=== PATIENT | female | born 1945 | race Caucasian/White ===

== ENCOUNTER 2020-03-12 10:01 | Outpatient (REF) | payer MEDICARE, SELFPAY ==
[2020-03-12 11:21] LABS: MANUAL DIFF FLAG NO
[2020-03-12 11:30] LABS: Basophils Percent Auto 0.5 % (0-2); Eosinophils Absolute Auto 0.1 X10*3/uL (0.0-0.4); Eosinophils Percent Auto 2.2 % (0-4); Hematocrit 39.4 % (37-47); Hemoglobin 12.3 g/dl (12.0-16.0); Lymphocytes Absolute Auto 1.5 X10*3/uL (1.2-4.9); Lymphocytes Percent Auto 37.4 % (20-40); Mean Corpuscular HGB Conc 31.2 g/dl (31.0-35.0); Mean Corpuscular Hemoglobin 28.9 pg (27.0-33.0); Mean Corpuscular Volume 92.5 fL (80-98); Mean Platelet Volume 10.1 fL (9.4-12.3); Monocytes Absolute Auto 0.3 X10*3/uL (0.1-1.2); Monocytes Percent Auto 7.6 % (2-11); Neutrophils Absolute Auto 2.1 X10*3/uL (2.0-8.3); Neutrophils Percent Auto 52.3 % (45-73); Platelet Count 252 X10*3/uL (160-400); Red Blood Count 4.26 X10*6/uL (4.20-5.50); Red Cell Distribution Width 13.9 % (11.0-16.0); White Blood Count 4.1 X10*3/uL (4.8-10.8)
[2020-03-12 12:04] LABS: Alanine Aminotransferase 8 U/L (0-31); Alkaline Phosphatase 74 U/L (39-117); Anion Gap 10 (12-20); Aspartate Amino Transferase 18 U/L (5-31); Bilirubin Total 0.4 mg/dL (0.0-1.0); Blood Urea Nitrogen 16 mg/dL (9-16); Calcium 8.5 mg/dL (8.4-10.2); Carbon Dioxide 26 mmol/L (22-29); Chloride 110 mmol/L (96-108); Cholesterol 169 mg/dL; Estimated Glomerular Filt Rate 57; Glucose Fasting 67 mg/dL (60-99); HDL Cholesterol 51 mg/dL; LDL Cholesterol Calculated 98 mg/dl; Potassium 3.8 mmol/l (3.3-5.1); Sodium 142 mmol/L (135-145); Total Protein 6.9 g/dL (6.5-8.0); Triglycerides 101 mg/dL
[2020-03-12 12:39] LABS: Thyroid Stimulating Hormone 0.93 uIU/mL (0.32-4.0)
== END 2020-03-12 10:02 | disposition home or self-care (01) ==
LOC: HO.HMGCLDS 10:01
PROVIDERS: PCP Internal Medicine; Visit Provider Internal Medicine
DX: E03.9 Hypothyroidism, unspecified (principal); E11.9 Type 2 diabetes mellitus without complications
CPT/HCPCS: 36415; 80053; 80061; 84443; 85025

== ENCOUNTER 2020-11-02 07:41 | Outpatient (REF) | payer MEDICARE, SELFPAY ==
[2020-11-02 11:04] LABS: MANUAL DIFF FLAG NO
[2020-11-02 11:18] LABS: Basophils Percent Auto 0.9 % (0-2); Eosinophils Absolute Auto 0.1 X10*3/uL (0.0-0.4); Eosinophils Percent Auto 1.9 % (0-4); Hematocrit 39.6 % (37-47); Hemoglobin 12.3 g/dl (12.0-16.0); Imm Gran Abs Auto 0.01 X10*3/uL (0.00-0.03); Imm Gran Pct Auto 0.2 % (0.0-0.4); Lymphocytes Absolute Auto 1.7 X10*3/uL (1.2-4.9); Mean Corpuscular HGB Conc 31.1 g/dl (31.0-35.0); Mean Corpuscular Hemoglobin 28.7 pg (27.0-33.0); Mean Corpuscular Volume 92.3 fL (80-98); Mean Platelet Volume 10.4 fL (9.4-12.3); Monocytes Absolute Auto 0.4 X10*3/uL (0.1-1.2); Monocytes Percent Auto 8.5 % (2-11); Neutrophils Absolute Auto 2.5 X10*3/uL (2.0-8.3); Neutrophils Percent Auto 52.5 % (45-73); Platelet Count 238 X10*3/uL (160-400); Red Blood Count 4.29 X10*6/uL (4.20-5.50); Red Cell Distribution Width 13.6 % (11.0-16.0); White Blood Count 4.7 X10*3/uL (4.8-10.8)
[2020-11-02 11:24] LABS: Alanine Aminotransferase 8 U/L (0-31); Albumin Level 3.9 g/dL (3.5-5.0); Alkaline Phosphatase 64 U/L (39-117); Anion Gap 11 (12-20); Aspartate Amino Transferase 18 U/L (5-31); Bilirubin Total 0.5 mg/dL (0.0-1.0); Blood Urea Nitrogen 19 mg/dL (9-16); Calcium 8.8 mg/dL (8.4-10.2); Carbon Dioxide 26 mmol/L (22-29); Chloride 108 mmol/L (96-108); Cholesterol 175 mg/dL; Estimated Glomerular Filt Rate 50; Glucose Fasting 90 mg/dL (60-99); HDL Cholesterol 56 mg/dL; LDL Cholesterol Calculated 103 mg/dl; Potassium 4.2 mmol/L (3.3-5.1); Sodium 141 mmol/L (135-145); Total Protein 7.2 g/dL (6.5-8.0); Triglycerides 81 mg/dL
[2020-11-02 11:52] LABS: Thyroid Stimulating Hormone 1.18 uIU/mL (0.32-4.0)
== END 2020-11-02 07:42 | disposition home or self-care (01) ==
LOC: HO.HMGCLDS 07:41
PROVIDERS: PCP Internal Medicine; Visit Provider Internal Medicine
DX: Z00.00 Encounter for general adult medical examination without abnormal findings (principal); E03.9 Hypothyroidism, unspecified; E11.9 Type 2 diabetes mellitus without complications
CPT/HCPCS: 36415; 80053; 80061; 84443; 85025

== ENCOUNTER 2020-11-19 10:34 | Outpatient (REF) | payer MEDICARE, SELFPAY ==
--- NOTE | ~2020-11-19 | MM_ITS ---
EXAMINATION: MM SCREENING DIGITAL BREAST TOMOSYNTHESIS, BILATERAL CLINICAL INFORMATION: Screening. Asymptomatic. The lifetime risk of breast cancer based on the Tyrer-Cuzick Model is 2%. COMPARISON: Mammography: 11/21/2019, 11/16/2018, 10/31/2017, 10/03/2016, 09/30/2015 TECHNIQUE: Digital breast tomosynthesis is performed in both the craniocaudal and mediolateral oblique views along with computer-aided detection (CAD). Synthesized 2D images are generated from the tomosynthesis. FINDINGS: The right breast is unremarkable. There is no interval mass or architectural abnormality or developing density. Neither breast shows abnormal calcifications. The bilateral axilla and skin contours are unremarkable. The left breast has increased glandular attenuation in the retroareolar region on both views measuring just under 2 cm in overall size. There is no definable mass or architectural abnormality on tomography. The finding could be related to incompletely compressed glandular tissue. Patient will be recalled for additional imaging. MM/MM tomosynthesis screening BI IMPRESSION: 1. Left: Increased parenchymal attenuation retroareolar region, possibly incompletely compressed glandular tissue. 2. Right: No mammographic evidence of malignancy. ASSESSMENT: BI-RADS 0: Incomplete - Need Additional Imaging Evaluation RECOMMENDATION: 1. Additional views of the left breast (3-D spot CC, nipple in profile; 3-D spot MLO, nipple in profile; 3-D ML nipple in profile). 2. Targeted ultrasound if warranted after review of the additional views. 3. Radiology department staff will contact the patient for additional imaging. This patient's information was entered into a reminder system with a target due date for their next mammogram.
== END 2020-11-19 10:35 | disposition home or self-care (01) ==
LOC: HO.MAMMO 10:34
PROVIDERS: PCP Internal Medicine; Visit Provider Internal Medicine
DX: Z12.31 Encounter for screening mammogram for malignant neoplasm of breast (principal)
CPT/HCPCS: 77063; 77067

== ENCOUNTER 2020-11-26 13:19 | Outpatient (REF) | payer MEDICARE, SELFPAY ==
--- NOTE | ~2020-11-26 | MM_ITS ---
EXAMINATION: MM DIAGNOSTIC DIGITAL BREAST TOMOSYNTHESIS, LEFT US DIAGNOSTIC ULTRASOUND BREAST, LEFT CLINICAL INFORMATION: Recall from screening for increased glandular attenuation retroareolar left breast possibly incompletely compressed glandular tissue. No palpable mass noted by patient or discharge. TC score 2%. COMPARISON: Mammography: 11/19/2020 and prior exams dating back to 08/01/2012 TECHNIQUE: Digital breast tomosynthesis is performed. 2D images are generated from the tomosynthesis. The following views are obtained: Spot CC, spot MLO, spot ML. Ultrasound left breast is targeted to the retroareolar region 11:00 through 4:00 position. Grayscale imaging and color Doppler are performed without and with harmonics. FINDINGS: There are scattered areas of fibroglandular density (ACR BI-RADS breast composition Category b). The additional views show splaying of the fibroglandular tissue. The parenchymal pattern is similar to prior exams. There is no interval mass or architectural abnormality. No appreciable developing density. Ultrasound demonstrates no cystic or solid mass or focal duct ectasia. No architectural abnormality. Results are discussed with the patient at time of visit. MM/MM tomosynthesis diagnostic LT IMPRESSION: Additional views show no significant changes from prior exams. Unremarkable targeted left breast ultrasound. ASSESSMENT: BI-RADS 2: Benign RECOMMENDATION: Routine annual mammography screening. This patient's information was entered into a reminder system with a target due date for their next mammogram.
== END 2020-11-26 13:20 | disposition home or self-care (01) ==
LOC: HO.MAMMO 13:19
PROVIDERS: Visit Provider Internal Medicine
DX: N64.89 Other specified disorders of breast (principal)
CPT/HCPCS: 76642; 77061; 77065

== ENCOUNTER 2021-04-13 13:13 | Outpatient (REF) | payer MEDICARE, SELFPAY ==
[2021-04-13 17:24] LABS: Thyroid Stimulating Hormone 1.24 uIU/mL (0.32-4.0)
== END 2021-04-13 13:14 | disposition home or self-care (01) ==
LOC: HO.HMGCLDS 13:13
PROVIDERS: PCP Internal Medicine; Visit Provider Internal Medicine
DX: E03.9 Hypothyroidism, unspecified (principal)
CPT/HCPCS: 36415; 84443

== ENCOUNTER 2021-11-03 07:21 | Outpatient (REF) | payer MEDICARE, SELFPAY ==
[2021-11-03 08:28] LABS: MANUAL DIFF FLAG NO
[2021-11-03 08:34] LABS: Basophils Percent Auto 0.6 % (0-2); Eosinophils Absolute Auto 0.1 X10*3/uL (0.0-0.4); Eosinophils Percent Auto 2.9 % (0-4); Hematocrit 36.3 % (37.0-47.0); Hemoglobin 11.7 g/dl (12.0-16.0); Imm Gran Abs Auto 0.01 X10*3/uL (0.00-0.03); Imm Gran Pct Auto 0.3 % (0.0-0.4); Lymphocytes Absolute Auto 1.4 X10*3/uL (1.2-4.9); Lymphocytes Percent Auto 42.1 % (20-40); Mean Corpuscular HGB Conc 32.2 g/dl (31.0-35.0); Mean Corpuscular Hemoglobin 29.3 pg (27.0-33.0); Monocytes Absolute Auto 0.3 X10*3/uL (0.1-1.2); Monocytes Percent Auto 8.2 % (2-11); Neutrophils Absolute Auto 1.6 x10*3/uL (2.0-8.3); Neutrophils Percent Auto 45.9 % (45-73); Platelet Count 231 X10*3/uL (160-400); Red Blood Count 3.99 X10*6/uL (4.20-5.50); Red Cell Distribution Width 13.2 % (11.0-16.0); White Blood Count 3.4 X10*3/uL (4.8-10.8)
[2021-11-03 11:47] LABS: Alanine Aminotransferase 12 U/L (0-31); Albumin Level 3.9 g/dL (3.5-5.0); Alkaline Phosphatase 63 U/L (39-117); Anion Gap 9 (12-20); Aspartate Amino Transferase 19 U/L (5-31); Bilirubin Total 0.3 mg/dL (0.0-1.0); Blood Urea Nitrogen 18 mg/dL (9-16); Calcium 8.6 mg/dL (8.4-10.2); Carbon Dioxide 23 mmol/L (22-29); Chloride 111 mmol/L (96-108); Cholesterol 165 mg/dL; Estimated Glomerular Filt Rate 48; Glucose Fasting 101 mg/dL (60-99); HDL Cholesterol 45 mg/dL; LDL Cholesterol Calculated 109 mg/dl; Potassium 4.4 mmol/L (3.3-5.1); Sodium 139 mmol/L (135-145); Total Protein 6.9 g/dL (6.5-8.0); Triglycerides 58 mg/dL
== END 2021-11-03 07:22 | disposition home or self-care (01) ==
LOC: HO.HMGCLDS 07:21
PROVIDERS: Visit Provider Internal Medicine
DX: I10 Essential (primary) hypertension (principal); E03.9 Hypothyroidism, unspecified; E78.5 Hyperlipidemia, unspecified; Z13.0 Encounter for screening for diseases of the blood and blood-forming organs and certain disorders involving the immune mechanism
CPT/HCPCS: 36415; 80053; 80061; 84443; 85025

== ENCOUNTER 2021-11-22 09:27 | Outpatient (REF) | payer MEDICARE, SELFPAY ==
--- NOTE | ~2021-11-22 | MM_ITS ---
EXAMINATION: MM SCREENING DIGITAL BREAST TOMOSYNTHESIS, BILATERAL CLINICAL INFORMATION: Screening. Asymptomatic. The lifetime risk of breast cancer based on the Tyrer-Cuzick Model is 2%. COMPARISON: Mammography: 11/26/2020, 11/19/2020, 11/21/2019, 11/16/2018 TECHNIQUE: Digital breast tomosynthesis is performed in both the craniocaudal and mediolateral oblique views along with computer-aided detection (CAD). Synthesized 2D images are generated from the tomosynthesis. FINDINGS: There are scattered areas of fibroglandular density (ACR BI-RADS breast composition Category b). There are no significant masses, abnormal calcifications, or other abnormalities. Parenchymal pattern is similar to prior studies. There is no developing density. The axilla and skin contours are unremarkable. No significant changes from prior exams. MM/MM tomosynthesis screening BI IMPRESSION: No mammographic evidence of malignancy. ASSESSMENT: BI-RADS 1: Negative RECOMMENDATION: Routine annual mammography screening. This patient's information was entered into a reminder system with a target due date for their next mammogram.
== END 2021-11-22 09:28 | disposition home or self-care (01) ==
LOC: HO.MAMMO 09:27
PROVIDERS: PCP Internal Medicine; Visit Provider Internal Medicine
DX: Z12.31 Encounter for screening mammogram for malignant neoplasm of breast (principal)
CPT/HCPCS: 77063; 77067

== ENCOUNTER 2022-05-09 10:25 | Outpatient (REF) | payer MEDICARE, SELFPAY ==
[2022-05-09 11:52] LABS: MANUAL DIFF FLAG NO
[2022-05-09 12:17] LABS: Basophils Percent Auto 0.8 % (0-2); Eosinophils Absolute Auto 0.1 X10*3/uL (0.0-0.4); Eosinophils Percent Auto 2.1 % (0-4); Hematocrit 38.3 % (37.0-47.0); Hemoglobin 12.4 g/dl (12.0-16.0); Imm Gran Abs Auto 0.01 X10*3/uL (0.00-0.03); Imm Gran Pct Auto 0.3 % (0.0-0.4); Lymphocytes Absolute Auto 1.5 X10*3/uL (1.2-4.9); Mean Corpuscular HGB Conc 32.4 g/dl (31.0-35.0); Mean Corpuscular Hemoglobin 29.6 pg (27.0-33.0); Mean Corpuscular Volume 91.4 fL (80.0-98.0); Mean Platelet Volume 10.2 fL (9.4-12.3); Monocytes Absolute Auto 0.3 X10*3/uL (0.1-1.2); Monocytes Percent Auto 7.7 % (2-11); Neutrophils Absolute Auto 1.8 x10*3/uL (2.0-8.3); Neutrophils Percent Auto 49.1 % (45-73); Platelet Count 235 X10*3/uL (160-400); Red Blood Count 4.19 X10*6/uL (4.20-5.50); Red Cell Distribution Width 13.6 % (11.0-16.0); White Blood Count 3.8 X10*3/uL (4.8-10.8)
[2022-05-09 12:47] LABS: Anion Gap 11 (12-20); Blood Urea Nitrogen 19 mg/dL (9-16); Carbon Dioxide 26 mmol/L (22-29); Chloride 109 mmol/L (96-108); Estimated Glomerular Filt Rate 48; Glucose Random 74 mg/dL (60-115); Sodium 142 mmol/L (135-145)
[2022-05-09 13:04] LABS: Thyroid Stimulating Hormone 1.35 uIU/mL (0.32-4.0)
== END 2022-05-09 10:26 | disposition home or self-care (01) ==
LOC: HO.HMGCLDS 10:25
PROVIDERS: Visit Provider Internal Medicine
DX: E03.9 Hypothyroidism, unspecified (principal); D64.9 Anemia, unspecified
CPT/HCPCS: 36415; 80048; 84443; 85025

== ENCOUNTER 2023-01-05 09:25 | Outpatient (AMB) | payer MEDICARE, SELFPAY ==
[2023-01-05 09:27] VITALS: BP 110/68; PULSE 55; O2SAT 98; BMI 23.6
--- NOTE | 2023-01-05 09:27 | MHC.PC.OV ---
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 Accompanied by: Spouse Allergies acetaminophen [From Vicodin] Allergy (Unknown, Verified 01/05/23 09:28) rash hydrocodone [From Vicodin] Allergy (Unknown, Verified 01/05/23 09:28) rash levofloxacin [Levaquin] Allergy (Unknown, Verified 01/05/23 09:28) Rash penicillin V Allergy (Unknown, Verified 01/05/23 09:28) Rash Sulfa (Sulfonamide Antibiotics) Allergy (Unknown, Verified 01/05/23 09:28) Rash Medication List - Last Reconciled 01/05/23 by Viraj Barrera MD fluorometholone 0.1% drps ophthalmic (eye) levothyroxine 50 mcg PO DAILY memantine 10 mg PO BID timolol maleate 0.25% 0 drps ophthalmic (eye) Tobacco use date assessed: 05/06/22 Fall risk assessment: No Falls in past year Last assessed Fall Risk: 01/05/23 Dental Screening Dental Screen Date: 01/05/23 Did you have a dental visit in the last 12 months?: Yes Did you have a dental problem in the last 6 months where you did not have access to dental care?: No Was dental information given to patient?: Patient has dentist HPI 4mth f/u HPI Details hypothyroidism on rx; doing well PFSH Surgical History History of carpal tunnel release History of removal of cyst History of tonsillectomy and adenoidectomy H/O rectal polypectomy Family History Father Stroke Mother Alzheimers disease Social History Housing: House Alcohol intake: current Alcohol intake frequency: holidays/special occasions only Patient Tobacco Use Status: Former Tobacco user Tobacco use type: Cigarette e-Cigarette/Vaping Use: Never Used Second Hand Smoke Exposure: No service: No Current occupational status: retired Cognitive needs: No Hearing needs: Yes Vision needs: Yes Questionnaire PHQ-9 Over the last 2 weeks, how often have you been bothered by any of the following problems? 1. Little interest or pleasure in doing things: not at all 2. Feeling down, depressed, or hopeless: not at all 3. Trouble falling or staying asleep, or sleeping too much: not at all 4. Feeling tired or having little energy: not at all 5. Poor appetite or overeating: not at all 6. Feeling bad about yourself - or that you are a failure or have let yourself or your family down: not at all 7. Trouble concentrating on things, such as reading the newspaper or watching television: not at all 8. Moving or speaking so slowly that other people could have noticed. Or the opposite - being so fidgety or restless that you have been moving around a lot more than usual: not at all 9. Thoughts that you would be better off or of hurting yourself in some way: not at all Total score: 0 Depression Screening Interpretation: Negative 73104 - PHQ-9 Billing: Yes Source: Developed by Drs. Alpesh Paiz, Janie Santos, Armaan Alexander and colleagues, with an educational jaime from [employer]. Thrive Questionnaire Date Thrive assessed: 05/06/22 AUDIT C Alcohol Use Questionnaire (AUDIT-C) 1. How often do you have a drink containing alcohol?: Never Total Score: 0 Score Reviewed/Action Taken: Yes PATTY-7 AMB Questionnaire PATTY-7 Date PATTY - 7 assessed: 05/06/22 Source: Developed by Drs. Alpesh Paiz, Janie Santos, Armaan Alexander and colleagues, with an educational jaime from [employer]. Review of Systems Const Denies chills, Denies headache(s) and Denies weight loss ENT Denies headache(s) Card Denies chest pain, Denies syncope, Denies irregular heart rhythm and Denies dyspnea Resp Denies chest congestion, Denies cough and Denies dyspnea GI Denies abdominal pain, Denies change in stool character, Denies nausea and Denies vomiting Musc Denies deformity and Denies joint swelling Neuro Denies syncope and Denies headache(s) Physical exam (Primary Care) Vital Signs: Last Vital Signs Pulse 55 01/05/23 09:27 BP 110/68 01/05/23 09:27 Pulse Ox 98 01/05/23 09:27 Oxygen Delivery Method Room Air 01/05/23 09:27 BMI result Body Mass Index 23.6 Tobacco/Smoking Status: Tobacco use Status Tobacco use date assessed 05/06/22 01/05/23 09:31 Patient Tobacco Use Status Former Tobacco user 01/05/23 09:31 Tobacco use type Cigarette 01/05/23 09:31 e-Cigarette/Vaping Use Never Used 01/05/23 09:31 PHQ-9: PHQ-9 Score PHQ-9: Total score 0 01/05/23 09:41 Depression Screening Interpretation: Negative Thrive Assessment: Date of Thrive Assessment Date Thrive assessed 05/06/22 01/05/23 09:31 Const General: cooperative, comfortable, no acute distress and alert Neck Neck: Yes no lymphadenopathy Thyroid: Thyroid normal Resp Effort & Inspection: normal respiratory effort Auscultation: clear to auscultation bilaterally Percussion: percussion normal Cardio Jugular venous distension: no JVD Palpation: normal PMI Rate: regular rate Rhythm: regular rhythm Heart sounds: S1 normal heart sound present and S2 normal heart sound present GI Inspection: Yes normal to inspection Palpation (GI): No hepatosplenomegaly present Skin General skin exam: no rashes or lesions noted Extrem General: Yes no clubbing, cyanosis or edema Assessment and Plan Assessment & Plan (1) Hypothyroidism: Code(s): E03.9 - Hypothyroidism, unspecified Plan: stable; same rx Orders: Orders Lipid Panel Today E78.5 - Hyperlipidemia, unspecified Complete Blood Count Auto Diff Today D64.9 - Anemia, unspecified Thyroid Stimulating Hormone Today E03.9 - Hypothyroidism, unspecified Comprehensive [place]. Panel Fast Today N28.9 - Disorder of kidney and ureter, unspecified Coding Level of Care Code Est Pt Level 3 (32131) Diagnoses Hypothyroidism E03.9
== END 2023-01-05 09:42 | disposition home or self-care (01) ==
PROVIDERS: Visit Provider Internal Medicine
DX: E03.9 Hypothyroidism, unspecified (principal)
CPT/HCPCS: 99213

== ENCOUNTER 2023-01-09 08:48 | Outpatient (REF) | payer MEDICARE, SELFPAY ==
[2023-01-09 11:33] LABS: MANUAL DIFF FLAG NO
[2023-01-09 11:49] LABS: Basophils Percent Auto 0.6 % (0-2); Eosinophils Absolute Auto 0.1 X10*3/uL (0.0-0.4); Eosinophils Percent Auto 1.8 % (0-4); Hematocrit 39.3 % (37.0-47.0); Hemoglobin 12.6 g/dl (12.0-16.0); Imm Gran Abs Auto 0.02 X10*3/uL (0.00-0.03); Imm Gran Pct Auto 0.4 % (0.0-0.4); Lymphocytes Absolute Auto 1.3 X10*3/uL (1.2-4.9); Mean Corpuscular HGB Conc 32.1 g/dl (31.0-35.0); Mean Corpuscular Hemoglobin 29.4 pg (27.0-33.0); Mean Corpuscular Volume 91.8 fL (80.0-98.0); Mean Platelet Volume 10.7 fL (9.4-12.3); Monocytes Absolute Auto 0.3 X10*3/uL (0.1-1.2); Monocytes Percent Auto 5.5 % (2-11); Neutrophils Absolute Auto 3.2 x10*3/uL (2.0-8.3); Neutrophils Percent Auto 65.7 % (45-73); Platelet Count 264 X10*3/uL (160-400); Red Blood Count 4.28 X10*6/uL (4.20-5.50); Red Cell Distribution Width 13.9 % (11.0-16.0); White Blood Count 4.9 X10*3/uL (4.8-10.8)
[2023-01-09 12:41] LABS: Alanine Aminotransferase 7 U/L (0-31); Albumin Level 3.8 g/dL (3.5-5.0); Alkaline Phosphatase 54 U/L (39-117); Anion Gap 12 (12-20); Aspartate Amino Transferase 20 U/L (5-31); Bilirubin Total 0.4 mg/dL (0.0-1.0); Blood Urea Nitrogen 17 mg/dL (9-16); Calcium 9.3 mg/dL (8.4-10.2); Carbon Dioxide 23 mmol/L (22-29); Chloride 111 mmol/L (96-108); Cholesterol 191 mg/dL (<200); Estimated Glomerular Filt Rate 41; Glucose Fasting 105 mg/dL (60-99); HDL Cholesterol 47 mg/dL (>40); LDL Cholesterol Calculated 126 mg/dL (<100); Potassium 3.9 mmol/L (3.3-5.1); Sodium 142 mmol/L (135-145); Total Protein 7.1 g/dL (6.5-8.0); Triglycerides 92 mg/dL (<150)
[2023-01-09 12:42] LABS: Thyroid Stimulating Hormone 14.87 uIU/mL (0.32-4.0)
== END 2023-01-09 08:49 | disposition home or self-care (01) ==
LOC: HO.HMGCLDS 08:48
PROVIDERS: PCP Internal Medicine; Visit Provider Internal Medicine
DX: D64.9 Anemia, unspecified (principal); N28.9 Disorder of kidney and ureter, unspecified; E03.9 Hypothyroidism, unspecified; E78.5 Hyperlipidemia, unspecified
CPT/HCPCS: 36415; 80053; 80061; 84443; 85025

== ENCOUNTER 2023-02-14 10:21 | Outpatient (AMB) | payer MEDICARE, SELFPAY ==
[2023-02-14 10:23] VITALS: BP 132/90; PULSE 67; O2SAT 98; BMI 21.9
--- NOTE | 2023-02-14 10:23 | MHC.PC.OV ---
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 Allergies acetaminophen [From Vicodin] Allergy (Unknown, Verified 02/14/23 10:24) rash hydrocodone [From Vicodin] Allergy (Unknown, Verified 02/14/23 10:24) rash levofloxacin [Levaquin] Allergy (Unknown, Verified 02/14/23 10:24) Rash penicillin V Allergy (Unknown, Verified 02/14/23 10:24) Rash Sulfa (Sulfonamide Antibiotics) Allergy (Unknown, Verified 02/14/23 10:24) Rash Medication List - Last Reconciled 02/14/23 by Viraj Barrera MD fluorometholone 0.1% drps ophthalmic (eye) levothyroxine (Synthroid) 100 mcg PO DAILY 90 days memantine 10 mg PO BID timolol maleate 0.25% 0 drps ophthalmic (eye) Tobacco use date assessed: 05/06/22 Fall risk assessment: No Falls in past year Last assessed Fall Risk: 02/14/23 Dental Screening Dental Screen Date: 02/14/23 Did you have a dental visit in the last 12 months?: Yes Did you have a dental problem in the last 6 months where you did not have access to dental care?: No Was dental information given to patient?: Patient has dentist HPI not eating or drinking much HPI Details has bilat hip and lower back pain PFSH Surgical History History of carpal tunnel release History of removal of cyst History of tonsillectomy and adenoidectomy H/O rectal polypectomy Family History Father Stroke Mother Alzheimers disease Social History Housing: House Alcohol intake: current Alcohol intake frequency: holidays/special occasions only Patient Tobacco Use Status: Former Tobacco user Tobacco use type: Cigarette e-Cigarette/Vaping Use: Never Used Second Hand Smoke Exposure: No service: No Current occupational status: retired Cognitive needs: No Hearing needs: Yes Vision needs: Yes Questionnaire PHQ-9 Over the last 2 weeks, how often have you been bothered by any of the following problems? 1. Little interest or pleasure in doing things: not at all 2. Feeling down, depressed, or hopeless: not at all 3. Trouble falling or staying asleep, or sleeping too much: not at all 4. Feeling tired or having little energy: not at all 5. Poor appetite or overeating: not at all 6. Feeling bad about yourself - or that you are a failure or have let yourself or your family down: not at all 7. Trouble concentrating on things, such as reading the newspaper or watching television: not at all 8. Moving or speaking so slowly that other people could have noticed. Or the opposite - being so fidgety or restless that you have been moving around a lot more than usual: not at all 9. Thoughts that you would be better off or of hurting yourself in some way: not at all Total score: 0 Depression Screening Interpretation: Negative Depression Screening Done: Yes 84411 - PHQ-9 Billing: Yes Source: Developed by Drs. Alpesh Paiz, Janie Santos, Armaan Alexander and colleagues, with an educational jaime from [employer]. Thrive Questionnaire Date Thrive assessed: 05/06/22 AUDIT C Alcohol Use Questionnaire (AUDIT-C) 1. How often do you have a drink containing alcohol?: Never Total Score: 0 Score Reviewed/Action Taken: Yes PATTY-7 AMB Questionnaire PATTY-7 Date PATTY - 7 assessed: 05/06/22 Source: Developed by Drs. Alpesh Paiz, Armaan Rodriguez and colleagues, with an educational jaime from [employer]. Review of Systems Const Denies chills, Denies headache(s) and Denies weight loss ENT Denies headache(s) Card Denies chest pain, Denies syncope, Denies irregular heart rhythm and Denies dyspnea Resp Denies chest congestion, Denies cough and Denies dyspnea GI Denies abdominal pain, Denies change in stool character, Denies nausea and Denies vomiting Musc Denies deformity and Denies joint swelling Neuro Denies syncope and Denies headache(s) Physical exam (Primary Care) Vital Signs: Last Vital Signs Pulse 67 02/14/23 10:23 BP 132/90 H 02/14/23 10:23 Pulse Ox 98 02/14/23 10:23 Oxygen Delivery Method Room Air 02/14/23 10:23 BMI result Body Mass Index 21.9 Tobacco/Smoking Status: Tobacco use Status Tobacco use date assessed 05/06/22 02/14/23 10:29 Patient Tobacco Use Status Former Tobacco user 02/14/23 10:29 Tobacco use type Cigarette 02/14/23 10:29 e-Cigarette/Vaping Use Never Used 02/14/23 10:29 PHQ-9: PHQ-9 Score PHQ-9: Total score 0 02/14/23 10:37 Depression Screening Interpretation: Negative Thrive Assessment: Date of Thrive Assessment Date Thrive assessed 05/06/22 02/14/23 10:29 Const General: cooperative, comfortable, no acute distress and alert Neck Neck: Yes no lymphadenopathy Thyroid: Thyroid normal Resp Effort & Inspection: normal respiratory effort Auscultation: clear to auscultation bilaterally Percussion: percussion normal Cardio Jugular venous distension: no JVD Palpation: normal PMI Rate: regular rate Rhythm: regular rhythm Heart sounds: S1 normal heart sound present and S2 normal heart sound present GI Inspection: Yes normal to inspection Palpation (GI): No hepatosplenomegaly present Skin General skin exam: no rashes or lesions noted Extrem General: Yes no clubbing, cyanosis or edema Assessment and Plan Assessment & Plan (1) Low back pain: Code(s): M54.50 - Low back pain, unspecified Plan: xr labs and rx; hols zoloft Orders: Orders Thyroid Stimulating Hormone Today E03.9 - Hypothyroidism, unspecified Basic Metabolic Panel Today E03.9 - Hypothyroidism, unspecified XR lumbar spine 2-3V Today M54.9 - Dorsalgia, unspecified XR hip RT min 2V Today M25.559 - Pain in unspecified hip XR hip LT min 2V Today M25.559 - Pain in unspecified hip Medications: New meloxicam 15 mg PO DAILY 30 tabs 3RF Coding Level of Care Code Est Pt Level 3 (10377) Diagnoses Low back pain M54.50
== END 2023-02-14 11:35 | disposition home or self-care (01) ==
PROVIDERS: PCP Internal Medicine; Visit Provider Internal Medicine
DX: M54.50 Low back pain, unspecified (principal)
CPT/HCPCS: 99213

== ENCOUNTER 2023-02-15 10:30 | Outpatient (REF) | payer MEDICARE, SELFPAY ==
--- NOTE | ~2023-02-15 | XR_ITS ---
EXAMINATION: XR LUMBAR SPINE XR RIGHT HIP XR LEFT HIP INDICATION: Back pain, pain in unspecified hip. TECHNIQUE: AP and 2 lateral views of the lumbar spine. AP and frog-lateral views of bilateral hips. FINDINGS: LUMBAR SPINE: The bones are diffusely demineralized. Levoscoliosis of the lumbar spine. Atherosclerotic aortic calcifications. Degenerative changes on limited images of the lower thoracic spine. Advanced multilevel degenerative changes with multilevel loss of disc space height most notable at L3-L4. RIGHT HIP: The bones are diffusely demineralized. Mild degenerative changes with joint space and hypertrophic change right hip. Extensive vascular calcifications. LEFT HIP: The bones are diffusely demineralized. Mild degenerative changes with joint space and hypertrophic change right hip. Extensive vascular calcifications. Coarse scattered calcifications in the soft tissues of the pelvis and hips. XR/XR hip LT min 2V IMPRESSION: 1. Advanced multilevel degenerative changes in the lumbar spine most notable at L3-L4. 2. Mild degenerative changes in the bilateral hips. 3. Facet arthritis. Additional imaging with MRI should be considered in the appropriate clinical setting if there is concern for fracture or other underlying pathology.
--- NOTE | ~2023-02-15 | XR_ITS ---
EXAMINATION: XR LUMBAR SPINE XR RIGHT HIP XR LEFT HIP INDICATION: Back pain, pain in unspecified hip. TECHNIQUE: AP and 2 lateral views of the lumbar spine. AP and frog-lateral views of bilateral hips. FINDINGS: LUMBAR SPINE: The bones are diffusely demineralized. Levoscoliosis of the lumbar spine. Atherosclerotic aortic calcifications. Degenerative changes on limited images of the lower thoracic spine. Advanced multilevel degenerative changes with multilevel loss of disc space height most notable at L3-L4. RIGHT HIP: The bones are diffusely demineralized. Mild degenerative changes with joint space and hypertrophic change right hip. Extensive vascular calcifications. LEFT HIP: The bones are diffusely demineralized. Mild degenerative changes with joint space and hypertrophic change right hip. Extensive vascular calcifications. Coarse scattered calcifications in the soft tissues of the pelvis and hips. XR/XR lumbar spine 2-3V IMPRESSION: 1. Advanced multilevel degenerative changes in the lumbar spine most notable at L3-L4. 2. Mild degenerative changes in the bilateral hips. 3. Facet arthritis. Additional imaging with MRI should be considered in the appropriate clinical setting if there is concern for fracture or other underlying pathology.
--- NOTE | ~2023-02-15 | XR_ITS ---
EXAMINATION: XR LUMBAR SPINE XR RIGHT HIP XR LEFT HIP INDICATION: Back pain, pain in unspecified hip. TECHNIQUE: AP and 2 lateral views of the lumbar spine. AP and frog-lateral views of bilateral hips. FINDINGS: LUMBAR SPINE: The bones are diffusely demineralized. Levoscoliosis of the lumbar spine. Atherosclerotic aortic calcifications. Degenerative changes on limited images of the lower thoracic spine. Advanced multilevel degenerative changes with multilevel loss of disc space height most notable at L3-L4. RIGHT HIP: The bones are diffusely demineralized. Mild degenerative changes with joint space and hypertrophic change right hip. Extensive vascular calcifications. LEFT HIP: The bones are diffusely demineralized. Mild degenerative changes with joint space and hypertrophic change right hip. Extensive vascular calcifications. Coarse scattered calcifications in the soft tissues of the pelvis and hips. XR/XR hip RT min 2V IMPRESSION: 1. Advanced multilevel degenerative changes in the lumbar spine most notable at L3-L4. 2. Mild degenerative changes in the bilateral hips. 3. Facet arthritis. Additional imaging with MRI should be considered in the appropriate clinical setting if there is concern for fracture or other underlying pathology.
[2023-02-15 12:16] LABS: Anion Gap 12 (12-20); Blood Urea Nitrogen 19 mg/dL (9-16); Calcium 9.1 mg/dL (8.4-10.2); Carbon Dioxide 22 mmol/L (22-29); Chloride 111 mmol/L (96-108); Estimated Glomerular Filt Rate 52; Glucose Random 102 mg/dL (60-115); Potassium 3.6 mmol/L (3.3-5.1); Sodium 141 mmol/L (135-145)
== END 2023-02-15 10:31 | disposition home or self-care (01) ==
LOC: HO.LAB 10:30
PROVIDERS: PCP Internal Medicine; Visit Provider Internal Medicine
DX: E03.9 Hypothyroidism, unspecified (principal); M54.9 Dorsalgia, unspecified; M25.551 Pain in right hip
CPT/HCPCS: 36415; 72100; 73502; 80048; 84443

== ENCOUNTER 2023-03-08 10:39 | Outpatient (AMB) | payer MEDICARE, SELFPAY ==
[2023-03-08 10:41] VITALS: BP 140/80; PULSE 60; O2SAT 98; BMI 21.8
--- NOTE | 2023-03-08 10:41 | A.OFFPC_ITS ---
Vital Signs 03/08/23 10:41 Height 5 ft 1 in Weight 115 lb 4 oz BMI 21.8 BP 140/80 H Blood Pressure Location Lt brachial Position Sitting Pulse 60 Pulse Source Pulse Oximeter Pulse Oximetry (%) 98 Oxygen Delivery Method Room Air Intake Visit Reasons: Weight loss/ unsteady gait Applied Exercise Physiologist Required: No Process Chemist: Present Accompanied by: Daughter Allergies acetaminophen [From Vicodin] Allergy (Unknown, Verified 03/08/23 10:42) rash hydrocodone [From Vicodin] Allergy (Unknown, Verified 03/08/23 10:42) rash levofloxacin [Levaquin] Allergy (Unknown, Verified 03/08/23 10:42) Rash penicillin V Allergy (Unknown, Verified 03/08/23 10:42) Rash Sulfa (Sulfonamide Antibiotics) Allergy (Unknown, Verified 03/08/23 10:42) Rash Medication List - Last Reconciled 03/09/23 by Viraj Barrera MD doxycycline hyclate 100 mg PO BID fluorometholone 0.1% drps ophthalmic (eye) levothyroxine (Synthroid) 100 mcg PO DAILY 90 days meloxicam 15 mg PO DAILY memantine 10 mg PO BID timolol maleate 0.25% 0 drps ophthalmic (eye) Tobacco use date assessed: 05/06/22 Fall risk assessment: No Falls in past year Last assessed Fall Risk: 03/08/23 Dental Screening Dental Screen Date: 03/08/23 Did you have a dental visit in the last 12 months?: Yes Did you have a dental problem in the last 6 months where you did not have access to dental care?: No Was dental information given to patient?: Patient has dentist HPI Weight loss/ unsteady gait HPI Details progressive weight loss due to poor intake from [facility]; family coping but needs assistance [facility] Surgical History History of carpal tunnel release History of removal of cyst History of tonsillectomy and adenoidectomy H/O rectal polypectomy Family History Father Stroke Mother Alzheimers disease Social History Housing: House Alcohol intake: current Alcohol intake frequency: holidays/special occasions only Patient Tobacco Use Status: Former Tobacco user Tobacco use type: Cigarette e-Cigarette/Vaping Use: Never Used Second Hand Smoke Exposure: No service: No Current occupational status: retired Cognitive needs: No Hearing needs: Yes Vision needs: Yes Questionnaire Thrive Questionnaire Date Thrive assessed: 05/06/22 PATTY-7 AMB Questionnaire PATTY-7 Date PATTY - 7 assessed: 05/06/22 Source: Developed by Drs. Alpesh Paiz, Janie Santos, Armaan Alexander and colleagues, with an educational jaime from [employer]. Review of Systems Const Denies chills, Denies headache(s) and Denies weight loss ENT Denies headache(s) Card Denies chest pain, Denies syncope, Denies irregular heart rhythm and Denies dyspnea Resp Denies chest congestion, Denies cough and Denies dyspnea GI Denies abdominal pain, Denies change in stool character, Denies nausea and Denies vomiting Musc Denies deformity and Denies joint swelling Neuro Denies syncope and Denies headache(s) Physical exam (Primary Care) Vital Signs: Last Vital Signs Pulse 60 03/08/23 10:41 BP 140/80 H 03/08/23 10:41 Pulse Ox 98 03/08/23 10:41 Oxygen Delivery Method Room Air 03/08/23 10:41 BMI result Body Mass Index 21.8 Tobacco/Smoking Status: Tobacco use Status Tobacco use date assessed 05/06/22 03/08/23 10:43 Patient Tobacco Use Status Former Tobacco user 03/08/23 10:43 Tobacco use type Cigarette 03/08/23 10:43 e-Cigarette/Vaping Use Never Used 03/08/23 10:43 Thrive Assessment: Date of Thrive Assessment Date Thrive assessed 05/06/22 03/08/23 10:43 Const General: cooperative, comfortable, no acute distress and alert Neck Neck: Yes no lymphadenopathy Thyroid: Thyroid normal Resp Effort & Inspection: normal respiratory effort Auscultation: clear to auscultation bilaterally Percussion: percussion normal Cardio Jugular venous distension: no JVD Palpation: normal PMI Rate: regular rate Rhythm: regular rhythm Heart sounds: S1 normal heart sound present and S2 normal heart sound present GI Inspection: Yes normal to inspection Palpation (GI): No hepatosplenomegaly present Skin General skin exam: no rashes or lesions noted Extrem General: Yes no clubbing, cyanosis or edema Assessment and Plan Assessment & Plan (1) Alzheimer disease: Code(s): G30.9 - Alzheimer's disease, unspecified; F02.80 - Dementia in other diseases classified elsewhere, unspecified severity, without behavioral disturbance, psychotic disturbance, mood disturbance, and anxiety Plan: nutritional advice; labs Orders: Orders Urine Culture 03/08/23 N39.0 - Urinary tract infection, site not specified Basic Metabolic Panel 03/08/23 N39.0 - Urinary tract infection, site not specified Thyroid Stimulating Hormone 03/08/23 E03.9 - Hypothyroidism, unspecified Basic Metabolic Panel Today F02.80 - Dementia in other diseases classified elsewhere, unspecified severity, without behavioral disturbance, psychotic disturbance, mood disturbance, and anxiety, G30.9 - Alzheimer's disease, unspecified Coding Level of Care Code Est Pt Level 3 (93871) Diagnoses Alzheimer disease G30.9; F02.80
== END 2023-03-08 11:26 | disposition home or self-care (01) ==
PROVIDERS: PCP Internal Medicine; Visit Provider Internal Medicine
DX: G30.9 Alzheimer's disease, unspecified (principal); F02.80 Dementia in other diseases classified elsewhere, unspecified severity, without behavioral disturbance, psychotic disturbance, mood disturbance, and anxiety
CPT/HCPCS: 99213

== ENCOUNTER 2023-03-08 11:37 | Outpatient (REF) | payer MEDICARE, SELFPAY ==
[2023-03-08 11:52] LABS: MANUAL DIFF FLAG NO
[2023-03-08 12:46] LABS: Basophils Percent Auto 0.7 % (0-2); Eosinophils Absolute Auto 0.2 X10*3/uL (0.0-0.4); Eosinophils Percent Auto 3.4 % (0-4); Hematocrit 36.3 % (37.0-47.0); Hemoglobin 11.5 g/dl (12.0-16.0); Imm Gran Abs Auto 0.03 X10*3/uL (0.00-0.03); Imm Gran Pct Auto 0.5 % (0.0-0.4); Lymphocytes Absolute Auto 1.8 X10*3/uL (1.2-4.9); Lymphocytes Percent Auto 30.6 % (20-40); Mean Corpuscular HGB Conc 31.7 g/dl (31.0-35.0); Mean Corpuscular Hemoglobin 28.1 pg (27.0-33.0); Mean Corpuscular Volume 88.8 fL (80.0-98.0); Mean Platelet Volume 10.3 fL (9.4-12.3); Monocytes Absolute Auto 0.4 X10*3/uL (0.1-1.2); Monocytes Percent Auto 7.4 % (2-11); Neutrophils Absolute Auto 3.4 x10*3/uL (2.0-8.3); Neutrophils Percent Auto 57.4 % (45-73); Platelet Count 241 X10*3/uL (160-400); Red Blood Count 4.09 X10*6/uL (4.20-5.50); Red Cell Distribution Width 14.7 % (11.0-16.0)
[2023-03-08 13:24] LABS: Alanine Aminotransferase 12 U/L (0-31); Albumin Level 3.4 g/dL (3.5-5.0); Alkaline Phosphatase 50 U/L (39-117); Anion Gap 10 (12-20); Aspartate Amino Transferase 24 U/L (5-31); Bilirubin Total 0.6 mg/dL (0.0-1.0); Blood Urea Nitrogen 16 mg/dL (9-16); Calcium 8.9 mg/dL (8.4-10.2); Carbon Dioxide 22 mmol/L (22-29); Chloride 110 mmol/L (96-108); Cholesterol 198 mg/dL (<200); Estimated Glomerular Filt Rate 54; Glucose Fasting 92 mg/dL (60-99); Glucose Random 92 mg/dL (60-115); HDL Cholesterol 36 mg/dL (>40); LDL Cholesterol Calculated 143 mg/dL (<100); Potassium 3.5 mmol/L (3.3-5.1); Sodium 138 mmol/L (135-145); Total Protein 6.5 g/dL (6.5-8.0); Triglycerides 98 mg/dL (<150)
[2023-03-08 13:40] LABS: Thyroid Stimulating Hormone 0.66 uIU/mL (0.32-4.0)
== END 2023-03-08 11:38 | disposition home or self-care (01) ==
LOC: HO.LAB 11:37
PROVIDERS: PCP Internal Medicine; Visit Provider Internal Medicine
DX: N28.9 Disorder of kidney and ureter, unspecified (principal); D64.9 Anemia, unspecified; N39.0 Urinary tract infection, site not specified; E78.5 Hyperlipidemia, unspecified; E03.9 Hypothyroidism, unspecified
CPT/HCPCS: 36415; 80048; 80053; 80061; 84443; 85025; 87086

== ENCOUNTER 2023-04-14 09:17 | Outpatient (AMB) | payer MEDICARE, SELFPAY ==
--- NOTE | 2023-04-14 09:20 | MHC.PC.OV ---
Vital Signs 04/14/23 09:22 Height 5 ft 1 in Weight 107 lb 2 oz BMI 20.2 BP 120/70 Blood Pressure Location Lt brachial Position Sitting Pulse 74 Pulse Source Pulse Oximeter Pulse Oximetry (%) 96 Oxygen Delivery Method Room Air Intake Visit Reasons: 3mth f/u Intake Note: Patient is here to follow up on Hypothyroidism, low back pain. 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 Required: No Low Voltage Technician: Present Accompanied by: Spouse Allergies acetaminophen [From Vicodin] Allergy (Unknown, Verified 04/14/23 09:22) rash hydrocodone [From Vicodin] Allergy (Unknown, Verified 04/14/23 09:22) rash levofloxacin [Levaquin] Allergy (Unknown, Verified 04/14/23 09:22) Rash penicillin V Allergy (Unknown, Verified 04/14/23 09:22) Rash Sulfa (Sulfonamide Antibiotics) Allergy (Unknown, Verified 04/14/23 09:22) Rash Medication List - Last Reconciled 04/14/23 by Viraj Barrera MD dorzolamide-timolol 22.3-6.8 mg/mL ophthalmic (eye) doxycycline hyclate 100 mg PO BID fluorometholone 0.1% drps ophthalmic (eye) levothyroxine (Synthroid) 50 mcg PO DAILY meloxicam 15 mg PO DAILY memantine 10 mg PO BID timolol maleate 0.25% 0 drps ophthalmic (eye) Tobacco use date assessed: 04/14/23 Fall risk assessment: No Falls in past year Last assessed Fall Risk: 04/14/23 Dental Screening Dental Screen Date: 04/14/23 Did you have a dental visit in the last 12 months?: Yes Did you have a dental problem in the last 6 months where you did not have access to dental care?: No Was dental information given to patient?: Patient has dentist HPI 3mth f/u HPI Details hypothyr on rx; progressive dementia PFSH Surgical History History of carpal tunnel release History of removal of cyst History of tonsillectomy and adenoidectomy H/O rectal polypectomy Family History Father Stroke Mother Alzheimers disease Social History Housing: House Alcohol intake: current Alcohol intake frequency: holidays/special occasions only Patient Tobacco Use Status: Former Tobacco user Tobacco use type: Cigarette e-Cigarette/Vaping Use: Never Used Second Hand Smoke Exposure: No service: No Current occupational status: retired Cognitive needs: No Hearing needs: Yes Vision needs: Yes Questionnaire PHQ-9 Over the last 2 weeks, how often have you been bothered by any of the following problems? 1. Little interest or pleasure in doing things: not at all 2. Feeling down, depressed, or hopeless: more than half the days 3. Trouble falling or staying asleep, or sleeping too much: nearly every day 4. Feeling tired or having little energy: not at all 5. Poor appetite or overeating: nearly every day 6. Feeling bad about yourself - or that you are a failure or have let yourself or your family down: not at all 7. Trouble concentrating on things, such as reading the newspaper or watching television: several days 8. Moving or speaking so slowly that other people could have noticed. Or the opposite - being so fidgety or restless that you have been moving around a lot more than usual: nearly every day 9. Thoughts that you would be better off or of hurting yourself in some way: not at all Total score: 12 Source: Developed by Drs. Alpesh Paiz, Janie Santos, Armaan Alexander and colleagues, with an educational jaime from [employer]. Thrive Questionnaire Date Thrive assessed: 04/14/23 I am a: Patient What is your living situation today?: I have a steady place to live Within the past 12 months, did the food you bought not last and you didn't have the money to get more?: Never true Within the past 12 months, did you worry whether your food would run out before you got money to buy more?: Never true Do you have trouble paying for medicines?: No Do you have trouble getting transportation to medical appointments?: No Do you have trouble paying your heating and electricity bill?: No Do you have trouble taking care of your child, family member or friend?: No Do you have trouble with day-to-day activities such as bathing, preparing meals, shopping, managing finances, etc.?: No Are you currently unemployed and looking for a job?: No Are you interested in more education?: No Currently or been in a relationship where the following occur: no concerns reported AUDIT C Alcohol Use Questionnaire (AUDIT-C) 1. How often do you have a drink containing alcohol?: Never Total Score: 0 PATTY-7 AMB Questionnaire PATTY-7 Date PATTY - 7 assessed: 04/14/23 Feeling nervous, anxious, or on edge: 0 = Not at all Not being able to stop or control worryin = Not at all Worrying too much about different things: 0 = Not at all Trouble relaxin = Not at all Being so restless that it is hard to sit still: 0 = Not at all Becoming easily annoyed or irritable: 0 = Not at all Feeling afraid as if something awful might happen: 0 = Not at all Total PATTY-7 score (0-4 normal; 5-9 mild; 10-14 moderate; 15-21 severe): 0 Source: Developed by Drs. Alpesh Paiz, Janie Santos, Armaan Alexander and colleagues, with an educational jaime from [employer]. Review of Systems Const Denies chills, Denies headache(s) and Denies weight loss ENT Denies headache(s) Card Denies chest pain, Denies syncope, Denies irregular heart rhythm and Denies dyspnea Resp Denies chest congestion, Denies cough and Denies dyspnea GI Denies abdominal pain, Denies change in stool character, Denies nausea and Denies vomiting Musc Denies deformity and Denies joint swelling Neuro Denies syncope and Denies headache(s) Physical exam (Primary Care) Vital Signs: Last Vital Signs Pulse 74 04/14/23 09:22 BP 120/70 04/14/23 09:22 Pulse Ox 96 04/14/23 09:22 Oxygen Delivery Method Room Air 04/14/23 09:22 BMI result Body Mass Index 20.2 Tobacco/Smoking Status: Tobacco use Status Tobacco use date assessed 04/14/23 04/14/23 09:31 Patient Tobacco Use Status Former Tobacco user 04/14/23 09:31 Tobacco use type Cigarette 04/14/23 09:31 e-Cigarette/Vaping Use Never Used 04/14/23 09:31 PHQ-9: PHQ-9 Score PHQ-9: Total score 12 04/14/23 09:31 Thrive Assessment: Date of Thrive Assessment Date Thrive assessed 04/14/23 04/14/23 09:31 Currently or been in a relationship where the following occur: no concerns reported Const General: cooperative, comfortable, no acute distress and alert Neck Neck: Yes no lymphadenopathy Thyroid: Thyroid normal Resp Effort & Inspection: normal respiratory effort Auscultation: clear to auscultation bilaterally Percussion: percussion normal Cardio Jugular venous distension: no JVD Palpation: normal PMI Rate: regular rate Rhythm: regular rhythm Heart sounds: S1 normal heart sound present and S2 normal heart sound present GI Inspection: Yes normal to inspection Palpation (GI): No hepatosplenomegaly present Skin General skin exam: no rashes or lesions noted Extrem General: Yes no clubbing, cyanosis or edema Assessment and Plan Assessment & Plan (1) Hypothyroidism: Code(s): E03.9 - Hypothyroidism, unspecified Plan: same rx (2) Alzheimer disease: Code(s): G30.9 - Alzheimer's disease, unspecified; F02.80 - Dementia in other diseases classified elsewhere, unspecified severity, without behavioral disturbance, psychotic disturbance, mood disturbance, and anxiety Plan: f/u with psych Orders: Orders Thyroid Stimulating Hormone Today E03.9 - Hypothyroidism, unspecified Medications: Changed From levothyroxine (Synthroid) 100 mcg PO DAILY 90 tabs 3RF 90 days To levothyroxine (Synthroid) 50 mcg PO DAILY Coding Level of Care Code Est Pt Level 3 (55992) Diagnoses Hypothyroidism E03.9 Alzheimer disease G30.9; F02.80
[2023-04-14 09:22] VITALS: BP 120/70; PULSE 74; O2SAT 96; BMI 20.2
== END 2023-04-14 09:48 | disposition home or self-care (01) ==
PROVIDERS: PCP Internal Medicine; Visit Provider Internal Medicine
DX: E03.9 Hypothyroidism, unspecified (principal); G30.9 Alzheimer's disease, unspecified; F02.80 Dementia in other diseases classified elsewhere, unspecified severity, without behavioral disturbance, psychotic disturbance, mood disturbance, and anxiety
CPT/HCPCS: 99213